=== PATIENT | female | born 1960 ===

== ENCOUNTER 2025-01-27 08:41 | Day surgery (SDC) | payer OTHER ==
[2025-01-07 10:37] LABS: HEMATOCRIT 39.1 % (36.0-45.00); MEAN CELL VOLUME 91.2 fL (80.00-100.00); MEAN CORPUSCULAR HEMOGLOBIN 30.4 pg (27.00-32.0); MEAN CORPUSCULAR HGB CONC 33.3 g/dl (32.0-36.0); PLATELET COUNT 266 K/uL (150-450); RED BLOOD COUNT 4.29 M/uL (4.00-6.00); RED CELL DISTRIBUTION WIDTH 12.9 % (11.5-14.5)
[2025-01-07 10:44] VITALS: BP 160/96
[2025-01-07 10:57] LABS: PH,URINE 6.5 (5.0-8.0); URINE APPEARANCE Clear; URINE BILIRRUBIN Negative (NEGATIVE); URINE BLOOD Negative; URINE COLOR Yellow; URINE GLUCOSE Negative (NEGATIVE); URINE KETONE Negative (NEGATIVE); URINE LEUKOCYTE Negative; URINE NITRATE Negative; URINE PROTEIN Negative (NEGATIVE); URINE UROBILINOGEN 0.2 E.U./dl
[2025-01-07 11:01] LABS: URINE BACTERIA 473.4 uL (0.0-1933); URINE EPITHELIAL CELLS 7.1 uL (0.0-38.8); URINE RBC 2.5 uL (0.0-20.8); URINE WBC 7.4 uL (0.0-23.2)
[2025-01-07 11:13] LABS: INR 0.96; PARTIAL THROMBOPLASTIN TIME 26.3 SECONDS (22.0-34.0); PROTHROMBIN TIME 10.5 SECONDS (9.0-11.5)
[2025-01-07 11:17] LABS: URINE CAST 0.14 uL (0.0-1.40)
[2025-01-07 11:18] LABS: ALBUMIN 3.7 gm/dL (3.4-5.0); BILIRUBIN TOTAL 0.37 mg/dL (0.3-1.2); CALCIUM 9.4 mg/dL (8.5-10.1); CREATININE SERUM 0.66 mg/dL (0.55-1.02); GFR 90.75; GLOBULINA 3.7 G/DL (2.4-3.5); POTASSIUM 3.91 mEq/L (3.5-5.1); TOTAL PROTEIN 7.4 gm/dL (6.4-8.2)
[~2025-01-27] VITALS: Ht 167.6 cm; Wt 81.6 kg
[~2025-01-27 08:41] MED LIST: ACID REDUCER20 M1 PO; ACTOS15 MG PO; CARDIZEM CD180 M1 PO; GLUMETZA500 MG PO; LANTUS SOL100 UNIT/1
[2025-01-27] MEDS ORDERED: BUPIVACAINE HCL/PF 0.25% 30ML VIAL InF ONE (10:45)
[2025-01-27] MEDS ORDERED: INSULIN REGULAR, HUMAN 1,000 UNIT/10 ML UNITS IV ONE (10:45)
[2025-01-27] MEDS ORDERED: CEFOXITIN SODIUM 2,000 MG VIAL IV ONE (10:45)
[2025-01-27] MEDS ORDERED: EPINEPHRINE HCL/PF 1 MG/ML AMPUL IR ONE (10:45)
[2025-01-27] MEDS ORDERED: MEPERIDINE HCL/PF 25 MG/ML VIAL IM PRN (12:45)
[2025-01-27] MEDS ORDERED: PROMETHAZINE HCL 25 MG/ML AMPUL IM PRN (12:45)
[2025-01-27] MEDS ORDERED: CEFAZOLIN SODIUM 1,000 MG VIAL IV ONE (12:45)
[2025-01-27] MEDS ORDERED: DUI500 PO (12:47)
[2025-01-27] MEDS ORDERED: TRAM1TAB98 PO (12:48)
[2025-01-27] MEDS ORDERED: MORPHINE SULFATE 4 MG/ML VIAL IV ONE (14:40)
[2025-01-27] MEDS ORDERED: CEFADROXIL 500 MG CAPSULE PO SCH (21:00)
== END 2025-01-27 18:25 | disposition home or self-care (01) ==
LOC: CIR.AMB 08:41
PROVIDERS: ATTEND Orthopaedic Surgery Sports Medicine
DX: S83.242A Other tear of medial meniscus, current injury, left knee, initial encounter (principal); M65.162 Other infective (teno)synovitis, left knee; M17.12 Unilateral primary osteoarthritis, left knee; E11.9 Type 2 diabetes mellitus without complications